=== PATIENT | female | born 1960 | race Two or more races ===

== ENCOUNTER 2025-05-20 10:45 | Inpatient (IN) | payer MEDICARE, OTHER ==
[~2025-05-20] VITALS: Ht 152.4 cm; Wt 64.6 kg
[2025-05-20 11:22] LABS: PLATELET COUNT (AUTO) 267 K/uL (150-450); RED BLOOD CELL COUNT(AUTO) 2.94 MIL/uL (4.0-5.2); RED CELL DISTRIBUTION WIDTH 15.3 % (11.5-15.0); WHITE BLOOD COUNT (AUTO) 10.6 K/uL (4.3-11.0)
[2025-05-20 11:29] LABS: CALCIUM, SERUM 8.5 mg/dL (8.5-10.1); CREATININE 6.8 mg/dL (0.6-1.3); SODIUM SERUM 139 mmol/L (136-145); UREA NITROGEN, BLOOD 56 mg/dL (7-18)
[2025-05-20 11:42] LABS: ASPARTATE AMINOTRANSFERASE 25 U/L (15-37); NT-PRO BNP 10306 pg/mL (0-125); TOTAL PROTEIN, SERUM 7.4 g/dL (6.4-8.2)
[2025-05-20] MEDS ORDERED: FUROSEMIDE 20 MG/2 ML VIAL ONE (11:51)
[2025-05-20] MEDS ORDERED: CALCIUM CHLORIDE 1,000 MG/10 ML DISP.SYRIN ONE (11:52)
[2025-05-20] MEDS ORDERED: INSULIN REGULAR, HUMAN 100 UNIT/ML 10 ML VIAL ONE (11:52)
[2025-05-20] MEDS ORDERED: DEXTROSE 50%-WATER 50 ML DISP.SYRIN ONE ×2 (11:52→13:26)
[2025-05-20] MEDS ORDERED: SODIUM BICARBONATE SYR 50 MEQ/50 ML DISP.SYRIN ONE (11:52)
[2025-05-20] MEDS: INSULIN REGULAR, HUMAN 100 UNIT/ML 10 ML VIAL IV ONE (11:55)
[2025-05-20] MEDS: DEXTROSE 50%-WATER 50 ML DISP.SYRIN IV ONE (11:55)
[2025-05-20] MEDS: FUROSEMIDE 40 MG/4 ML VIAL IV ONE (11:55)
[2025-05-20] MEDS: SODIUM BICARBONATE SYR 50 MEQ/50 ML DISP.SYRIN IV ONE (11:57)
[2025-05-20] MEDS: CALCIUM CHLORIDE 1,000 MG/10 ML DISP.SYRIN IV ONE (11:58)
[2025-05-20] MEDS ORDERED: ALBUTEROL FS 2.5 MG/3 ML VIAL.NEB ONE (12:01)
[2025-05-20] MEDS: ALBUTEROL FS 2.5 MG/3 ML VIAL.NEB NEB ONE (12:09)
[2025-05-20 12:10] VITALS: O2SAT 92
[2025-05-20] MEDS ORDERED: SODIUM ZIRCONIUM CYCLOSILICATE 10 GM POWD.PACK ONE (12:14)
[2025-05-20] MEDS: SODIUM ZIRCONIUM CYCLOSILICATE 10 GM POWD.PACK PO ONE (12:55)
[2025-05-20] MEDS ORDERED: METF-442 PO (13:09)
[2025-05-20] MEDS ORDERED: FURO80TA3 PO (13:09)
[2025-05-20] MEDS ORDERED: INSU100I30 SQ (13:09)
[2025-05-20] MEDS ORDERED: NIFE-34 PO (13:09)
[2025-05-20] MEDS ORDERED: GABA300C PO (13:09)
[2025-05-20] MEDS ORDERED: HYDR-4076 PO (13:09)
[2025-05-20] MEDS ORDERED: SEMA1PEN SQ (13:09)
[2025-05-20] MEDS ORDERED: AMLO-213 PO (13:09)
[2025-05-20] MEDS ORDERED: CARV12.52 PO (13:09)
[2025-05-20] MEDS ORDERED: SEVE800T7 PO (13:09)
[2025-05-20] MEDS ORDERED: PANT40TA49 PO (13:09)
[2025-05-20 13:10] VITALS: O2SAT 98
[2025-05-20] MEDS: DEXTROSE 50%-WATER 50 ML DISP.SYRIN IVP ONE (13:30)
[2025-05-20 14:11] VITALS: BP 157/84; TEMP 98.2; O2SAT 98
[2025-05-20] MEDS ORDERED: ONDANSETRON HCL/PF 4 MG/2 ML VIAL IVP PRN (14:30)
[2025-05-20] MEDS ORDERED: DOSING PER PHARMACY-VANCOMYCIN IV XX PRN (14:30)
[2025-05-20] MEDS ORDERED: DOSING PER PHARMACY-CEFEPIME IVPB XX PRN (14:30)
[2025-05-20] MEDS ORDERED: Z GUARD REMEDY 4 OZ OINT TP PRN (14:30)
[2025-05-20] MEDS ORDERED: VANCOMYCIN POST DIALYSIS 500MG IV PRN (15:00)
[2025-05-20] MEDS: VANCOMYCIN 1 GM in IV D5W 250ml IV ONE (15:33)
[2025-05-20] MEDS: CARVEDILOL 12.5 MG TABLET PO SCH (16:13)
[2025-05-20] MEDS: GABAPENTIN 300 MG CAPSULE PO SCH (16:13)
[2025-05-20] MEDS: NIFEDIPINE XL 60 MG TAB.ER.24 PO SCH (16:13)
[2025-05-20 16:35] LABS: APPEARANCE,URINE CLEAR (CLEAR); BLOOD, URINE TRACE-INTA Ery/uL (NEGATIVE); LEUKOCYTE ESTERASE ,URINE NEGATIVE (NEGATIVE); NITRITE, URINE NEGATIVE (NEGATIVE); UGLUCOSE NEGATIVE (NEGATIVE)
[2025-05-20] MEDS: BLOOD SUGAR DIAGNOSTIC 1 EACH STRIP IN SCH (17:07)
[2025-05-20 17:47] LABS: ADD URINE CULTURE YES; SQUAMOUS EPITHELIAL CELL,UR 21-50 /HPF (None Seen)
[2025-05-20] MEDS: SEVELAMER CARBONATE 800 MG TABLET PO SCH (18:00)
[2025-05-20] MEDS: ALBUTEROL FS 2.5 MG/3 ML VIAL.NEB NEB SCH (19:30)
[2025-05-20] MEDS: IPRATROPIUM NEB FS 0.5 MG/2.5 ML AMPUL.NEB NEB SCH (19:30)
[2025-05-20 20:00] VITALS: BP 154/64; TEMP 100.2; O2SAT 93
[2025-05-20 20:47] VITALS: BP 154/64; TEMP 100.2; O2SAT 93
[2025-05-20] MEDS ORDERED: CEFEPIME 1 GM VIAL ONE (21:38)
[2025-05-20] MEDS: ATORVASTATIN 40 MG TABLET PO SCH (21:38)
[2025-05-20] MEDS: TRAMADOL HCL 50 MG TABLET PO PRN (21:39)
[2025-05-20] MEDS: CEFEPIME 1 GM in IV D5W 50 ML IV SCH (21:52)
[2025-05-20] MEDS: INSULIN GLARGINE, 100 UNIT/ML CARTRIDGE SQ SCH (22:44)
[2025-05-20] MEDS: INSULIN REGULAR, HUMAN 100 UNIT/ML 3 ML VIAL SQ PRN (22:45)
[2025-05-21] VITALS (13 sets, daily range): BP systolic 104–172; BP diastolic 42–65; TEMP 97.9–100.6; O2SAT 90–99
[2025-05-21] MEDS: ACETAMINOPHEN 325 MG TABLET PO PRN (00:18)
[2025-05-21 01:43] LABS: CALCIUM, SERUM 8.3 mg/dL (8.5-10.1); CREATININE 3.3 mg/dL (0.6-1.3); SODIUM SERUM 140.0 mmol/L (136-145); UREA NITROGEN, BLOOD 18.0 mg/dL (7-18)
[2025-05-21 07:47] LABS: PLATELET COUNT (AUTO) 232 K/uL (150-450); RED BLOOD CELL COUNT(AUTO) 2.65 MIL/uL (4.0-5.2); RED CELL DISTRIBUTION WIDTH 15.3 % (11.5-15.0); WHITE BLOOD COUNT (AUTO) 8.9 K/uL (4.3-11.0)
[2025-05-21] MEDS: PANTOPRAZOLE 40 MG TABLET.DR PO SCH (08:24)
[2025-05-21] MEDS: ASPIRIN 81 MG TAB.CHEW PO SCH (08:24)
[2025-05-21] MEDS ORDERED: FUROSEMIDE 80 MG TABLET PO SCH (09:00)
[2025-05-21 09:12] LABS: CALCIUM, SERUM 8.4 mg/dL (8.5-10.1); CREATININE 3.9 mg/dL (0.6-1.3); PHOSPHORUS 3.4 mg/dL (2.5-4.9); SODIUM SERUM 141.0 mmol/L (136-145); UREA NITROGEN, BLOOD 20.0 mg/dL (7-18)
[2025-05-21 10:35] LABS: LDL 54.0 mg/dL (0-99)
[2025-05-21 16:33] LABS: ABG BASE EXCESS 4.3 mmol/L (-2.0-3.0); ABG OXYGEN SATURATION 95.1 % (94.0-98.0); ABG PCO2 44.2 mmHg (32.0-45.0); ABG PH 7.435 (7.350-7.450); ABG PO2 79.4 mmHg (83.0-108.0); ABG TOTAL HEMOGLOBIN 7.8 G/dL (12.0-16.0); FLOW, BLOOD GAS 5.00 L/min (0.00-30.00); FRACTIONATED INSPIRED OXYGEN 40.0 %; SITE, ABG RIGHT RADIAL
[2025-05-21 20:58] LABS: ABG BASE EXCESS 6.9 mmol/L (-2.0-3.0); ABG OXYGEN SATURATION 95.7 % (94.0-98.0); ABG PCO2 46.0 mmHg (32.0-45.0); ABG PH 7.454 (7.350-7.450); ABG PO2 81.4 mmHg (83.0-108.0); ABG TOTAL HEMOGLOBIN 8.2 G/dL (12.0-16.0); FLOW, BLOOD GAS 6.00 L/min (0.00-30.00); FRACTIONATED INSPIRED OXYGEN 45.0 %; SITE, ABG RIGHT RADIAL
[2025-05-22] VITALS (10 sets, daily range): BP systolic 111–143; BP diastolic 51–82; TEMP 97.7–98.6; O2SAT 95–100
[2025-05-22] MEDS: GUAIFENESIN/D-METHORPHAN HB 5 ML UDC PO PRN (01:09)
[2025-05-22 05:07] LABS: HEPATITIS B SURFACE AB (QUAL) Reactive (.)
[2025-05-22 06:56] LABS: PLATELET COUNT (AUTO) 217 K/uL (150-450); RED BLOOD CELL COUNT(AUTO) 2.73 MIL/uL (4.0-5.2); RED CELL DISTRIBUTION WIDTH 15.1 % (11.5-15.0); WHITE BLOOD COUNT (AUTO) 9.6 K/uL (4.3-11.0)
[2025-05-22 07:02] LABS: CREATININE 5.8 mg/dL (0.6-1.3); SODIUM SERUM 135.0 mmol/L (136-145); UREA NITROGEN, BLOOD 39.0 mg/dL (7-18)
[2025-05-22 07:09] LABS: CALCIUM, SERUM 8.5 mg/dL (8.5-10.1)
[2025-05-22] MEDS: FUROSEMIDE 40 MG TABLET PO SCH (08:16)
[2025-05-23] VITALS (11 sets, daily range): BP systolic 131–143; BP diastolic 47–57; TEMP 98.1–98.4; O2SAT 94–100
[2025-05-23 07:18] LABS: PLATELET COUNT (AUTO) 205 K/uL (150-450); RED BLOOD CELL COUNT(AUTO) 2.64 MIL/uL (4.0-5.2); RED CELL DISTRIBUTION WIDTH 15.2 % (11.5-15.0); WHITE BLOOD COUNT (AUTO) 9.8 K/uL (4.3-11.0)
[2025-05-23 07:39] LABS: CALCIUM, SERUM 8.6 mg/dL (8.5-10.1); CREATININE 3.3 mg/dL (0.6-1.3); PHOSPHORUS 2.5 mg/dL (2.5-4.9); SODIUM SERUM 137.0 mmol/L (136-145); UREA NITROGEN, BLOOD 18.0 mg/dL (7-18)
[2025-05-23] MEDS: AZITHROMYCIN 250 MG TABLET PO SCH (22:14)
[2025-05-24] VITALS (10 sets, daily range): BP systolic 116–161; BP diastolic 46–83; TEMP 97.3–98.4; O2SAT 93–99
[2025-05-24 06:50] LABS: PLATELET COUNT (AUTO) 213 K/uL (150-450); RED BLOOD CELL COUNT(AUTO) 2.60 MIL/uL (4.0-5.2); RED CELL DISTRIBUTION WIDTH 14.9 % (11.5-15.0); WHITE BLOOD COUNT (AUTO) 7.8 K/uL (4.3-11.0)
[2025-05-24] MEDS: DEXTROSE 50%-WATER 50 ML DISP.SYRIN IV PRN (07:35)
[2025-05-24 08:22] LABS: CALCIUM, SERUM 8.4 mg/dL (8.5-10.1); CREATININE 5.6 mg/dL (0.6-1.3); PHOSPHORUS 3.8 mg/dL (2.5-4.9); SODIUM SERUM 137.0 mmol/L (136-145); UREA NITROGEN, BLOOD 35.0 mg/dL (7-18)
[2025-05-24] MEDS ORDERED: AZIT250T13 PO (12:31)
== END 2025-05-24 20:50 | disposition home health service (06) | DRG 193 ==
LOC: ER 10:45 → TELE 13:17 → MED 05-21 16:22
PROVIDERS: ADMIT Nurse Practitioner Family; ATTEND Nurse Practitioner Family
PROC: 5A1D70Z Performance of Urinary Filtration, Intermittent, Less than 6 Hours Per Day (ICD-10-PCS; principal; 2025-05-20)
PROC: 05HB33Z Insertion of Infusion Device into Right Basilic Vein, Percutaneous Approach (ICD-10-PCS; 2025-05-20)
PROC: B54MZZA Ultrasonography of Right Upper Extremity Veins, Guidance (ICD-10-PCS; 2025-05-20)
DX: J15.9 Unspecified bacterial pneumonia (principal); J96.01 Acute respiratory failure with hypoxia; N18.6 End stage renal disease; J96.02 Acute respiratory failure with hypercapnia; I12.0 Hypertensive chronic kidney disease with stage 5 chronic kidney disease or end stage renal disease; J90 Pleural effusion, not elsewhere classified; J98.11 Atelectasis; J18.9 Pneumonia, unspecified organism; Z99.2 Dependence on renal dialysis; E87.5 Hyperkalemia; E78.5 Hyperlipidemia, unspecified; I27.20 Pulmonary hypertension, unspecified; D63.8 Anemia in other chronic diseases classified elsewhere; Z79.84 Long term (current) use of oral hypoglycemic drugs; Z79.4 Long term (current) use of insulin; Z87.891 Personal history of nicotine dependence; R07.89 Other chest pain; E11.22 Type 2 diabetes mellitus with diabetic chronic kidney disease; R53.81 Other malaise; Z20.822 Contact with and (suspected) exposure to COVID-19; E83.9 Disorder of mineral metabolism, unspecified; B34.9 Viral infection, unspecified
CPT/HCPCS: 36415; 36600; 71045-TC; 71250-TC; 80048-TC; 80061-TC; 80076-TC; 80202-TC; 81001; 82803-TC; 82962-TC; 83735-TC; 83880; 84100-TC; 84484-TC; 85025-TC; 86706; 87040-TC; 87081-TC; 87086-TC; 87340; 90935-TC; 93307-TC; 94760-TC; 94762-TC; 94799-TC; A4223; G0378; J0692; J1815; J1938; J3373; J3490; J7030; J7050; J7060